=== PATIENT | male | born 1955 | race Caucasian/White ===

== ENCOUNTER 2017-04-25 09:20 | Emergency (ER) | payer OTHER ==
[~2017-04-25] VITALS: Ht 175.3 cm; Wt 88.9 kg
[2017-04-25] MEDS ORDERED: EPIPEN ADU0.3 MG/0.3 IM (12:12)
[2017-04-25 12:26] VITALS: BP 129/80
== END 2017-04-25 12:28 | disposition home or self-care (01) ==
LOC: EME 09:20 → EDBD 09:20 → EME 12:28
DX: L50.9 Urticaria, unspecified (principal); T63.441A Toxic effect of venom of bees, accidental (unintentional), initial encounter
CPT/HCPCS: 93005; 99281; 99285; J1200; J2930; S0028